=== PATIENT | male | born 1955 | race Caucasian/White ===

== ENCOUNTER → 2024-03-08 11:28 | Outpatient (REF) | payer MEDICARE, SELFPAY | LOC: HWRAD 11:28 | PROVIDERS: ATTENDING PHYSICIAN Nurse Practitioner | DX: J18.0 Bronchopneumonia, unspecified organism (principal) | CPT/HCPCS: 71046 ==

== ENCOUNTER → 2024-12-12 11:57 | Outpatient (REF) | payer MEDICARE, SELFPAY | LOC: HWRAD 11:57 | PROVIDERS: ATTENDING PHYSICIAN Nurse Practitioner Family | DX: R05.3 Chronic cough (principal) | CPT/HCPCS: 71046 ==

== ENCOUNTER → 2025-02-27 12:08 | Outpatient (REF) | payer MEDICARE, SELFPAY | LOC: DHSLP 12:08 | PROVIDERS: ATTENDING PHYSICIAN Internal Medicine Critical Care Medicine | DX: G47.30 Sleep apnea, unspecified (principal); R06.83 Snoring | CPT/HCPCS: 95800 ==

== ENCOUNTER → 2025-08-31 14:33 | Outpatient (REF) | payer MEDICARE, SELFPAY | LOC: HWRAD 14:33 | PROVIDERS: ATTENDING PHYSICIAN Internal Medicine Rheumatology | DX: M17.0 Bilateral primary osteoarthritis of knee (principal) | CPT/HCPCS: 73560; 73565 ==